=== PATIENT | female | born 1945 | race Caucasian/White ===

== ENCOUNTER → 2018-04-11 | Outpatient (CLI) | payer OTHER ==
[~2018-04-11] VITALS: Ht 157.5 cm; Wt 95.3 kg
[~2018-04-11] MED LIST: ASPIR 8181 MG PO; CALCIUM 600 +1 EAC1 PO; GLUCOSAMINE CO1 EAC4 PO; LIPITOR80 MG PO; LISINOPRIL10 MG PO; MEGA BIOTIN10000 MCG PO; UNICOMPLEX M TA1 TA1 PO; WELLBUTRIN SR150 MG PO
--- NOTE | ~2018-04-11 | CATHLAB ---
[facility] [address] [place] [address] INVASIVE PROCEDURE REPORT Name: RISA BEAVER Room #: REG [facility]#: [id number] Admission: 04/11/18 Attend Phys: Torres Hogan Discharge: Date of : 45 Date of Service: 04/17/18 1317 Report #: [id number] THIS REPORT FOR: //name// APPROVED REPORT Study performed: 04/11/2018 10:20:33 Patient Details Patient Status: Out-Patient Room #: The patient is a 73 year-old female Event Personnel Torres Iverson Casino Floorperson, Antony Saini RN RN, Mirlande De Luna RTR, [employer] Monitor, Burke Harley Tharp, Cori RN quartz miner Performed Art Access - R femoral artery* Left Heart Cath w/or w/o Coronaries [id number] [facility] [id number] Initial Mod Sed Same Phys/QHP Gr5y 057919 FFR [id number] FFR Hemostasis w/ Mynx, supervision of conscious sedation Indication Chest pain Procedure Narrative The Right Groin^ was infiltrated with 1% Lidocaine subcutaneous anesthesia. A PINNACLE 4FR Sheath #[id number] sheath was inserted into the RFA^. Coronary angiography was performed using coronary diagnostic catheters. The right coronary system was accessed and visualized with a JR4 catheter. The left coronary system was accessed and visualized with a JL4 catheter. The left ventricle was accessed and visualized with a pigtail catheter. Left ventricular/Aortic Valve gradient assessed via catheter pullback. Pre-demployment femoral angiogram was performed . Closure device was deployed with a 6 Fr MYNXGRIP 6/7F #[id number]. The patient tolerated the procedure well and there were no complications associated with the procedure. There was no hematoma. Intraoperative Conscious Sedation Sedation start time: 11:30 Case end Time: 12:05 Versed 3 mg Fluoro Time: 2.38 minutes [facility] [place] [address] INVASIVE PROCEDURE REPORT Name: KEVENYessicaRISA M Room #: REG [facility]#: [id number] Admission: 04/11/18 Attend Phys: Torres Hogan Discharge: Date of : 45 Date of Service: 04/17/18 1317 Report #: [id number] Dose: DAP 2951.60 cGycm2 455 mGy Contrast Type and Amount: Omnipaque 50 ml Coronary Angiography The patient's coronary anatomy is right dominant. Diagnostic Cath Left Main Normal origin and caliber bifurcates left anterior descending left circumflex free of significant obstructive lesions LAD Small to moderate caliber type II vessel which gives rise to a moderate first diagonal branches proximal portion. And continues in the anterior interventricular sulcus irregularities but no significant obstructive lesion terminating at the apex has a small string-like vessel Circumflex Moderate caliber vessel normal origin has an eccentric lesion of 40-50%. It then gives rise to a large marginal branch and continues as a small posterior wall branch terminating in the posterior aspect of the left ventricle. OM1 Large-caliber vessel coursing on the lateral aspect of the heart with luminal irregularities noted Right Coronary Large-caliber vessel of normal origin procedures in the AV groove giving rise to small RV marginal branches. And continues to the crux of the heart rate gives rise to posterior descending artery and a small posterior wall circulation consisting of a trifurcation a small caliber vessels R PDA Small to moderate caliber vessel coursing in the posterior interventricular sulcus free of high-grade disease Left Ventriculography Left Ventriculography was not performed. Hemodynamics The aortic pressure is 144/69 mmHg with a mean of 100 mmHg. The left ventricular pressure is 141/8 mmHg with a mean of mmHg. The left ventricular end diastolic pressure is 23 mmHg. PCI Technique Lesion A LAUNCHER 6FR JL4 #[id number] Guide Catheter was used to engage the ostium. A [employer] Pressure Wire 175 cm [id number] Interventional Guidewire was used to cross the lesion. COMMENTS FFR performed with adenosine infusion. Pre-adenosine infusion=1.03; Post adenosine infusion=.97 [facility] [address] [place] [address] INVASIVE PROCEDURE REPORT Name: RISA BEAVER Room #: REG CL [facility]#: [id number] Admission: 04/11/18 Attend Phys: Torres Hogan Discharge: Date of : 45 Date of Service: 04/17/18 1317 Report #: [id number] Conclusion 1. Minimal coronary artery 2. Normal other than index Recommendations Cardiac Risk Reduction Program <ELECTRONICALLY SIGNED> By: Torres Iverson MD 04/17/18 1317 16 16 Torres Iverson MD /INF
[2018-04-11 09:53] LABS: HEMATOCRIT 39.1 % (37.0-47.0); HEMOGLOBIN 13.1 gm/dL (12.0-15.0); MCH 30.6 pg (26.0-34.0); MCHC 33.4 g/dL (28.0-37.0); MCV 91.6 fL (80.0-100.0); RBC 4.27 mil/uL (4.20-5.00); RDW 14.3 % (10.5-14.5); WBC 9.4 thou/uL (4.0-11.0)
[2018-04-11 10:00] LABS: CALCIUM 9.7 mg/dL (8.5-10.1); CREATININE 0.7 mg/dL (0.6-1.0); POTASSIUM 4.1 mmol/L (3.5-5.1)
[2018-04-11 10:02] VITALS: BP 177/68
== END | disposition home or self-care (01) ==
LOC: CATH 09:14
PROVIDERS: Internal Medicine
DX: I25.10 Atherosclerotic heart disease of native coronary artery without angina pectoris (principal); I25.84 Coronary atherosclerosis due to calcified coronary lesion; I10 Essential (primary) hypertension; I77.810 Thoracic aortic ectasia; I35.1 Nonrheumatic aortic (valve) insufficiency; E78.00 Pure hypercholesterolemia, unspecified; E11.9 Type 2 diabetes mellitus without complications; K21.9 Gastro-esophageal reflux disease without esophagitis; J44.9 Chronic obstructive pulmonary disease, unspecified; G47.33 Obstructive sleep apnea (adult) (pediatric); Z90.49 Acquired absence of other specified parts of digestive tract; Z90.710 Acquired absence of both cervix and uterus; Z98.890 Other specified postprocedural states; Z79.82 Long term (current) use of aspirin; Z79.899 Other long term (current) drug therapy; Z88.0 Allergy status to penicillin; Z88.2 Allergy status to sulfonamides; Z88.8 Allergy status to other drugs, medicaments and biological substances; Z91.040 Latex allergy status